=== PATIENT | female | born 1945 | race Caucasian/White ===

== ENCOUNTER → 2016-06-12 | Outpatient (CLI) | payer OTHER ==
[~2016-06-12] MED LIST: ASPI81TA28 PO; ATOR-22 PO; CALC1CAP24 PO; DORZ1SOL6 OP; FSM70 PO; HYDR-5688 PO; LEVO75TA5 PO; LISI-461 PO; MULT-506 PO; OMEP40CA PO; [UNRECOGNIZED DRUG - CODE] OPB
[2016-06-12 17:01] LABS: BASO % 0.4 %; BASO ABS # 0.02 K/uL (0-0.2); COMPLETE YES; EOS % 7.7 %; HEMATOCRIT 37.5 % (37-47); IG% 0.2 %; LYMPH % 28.9 %; LYMPH ABS # 1.61 K/uL (1.2-3.4); MEAN CELL VOLUME 89.1 fL (80-100); MEAN CORPUSCULAR HGB CONC 32.5 g/dl (32-36); MONO % 10.2 %; NEUT % 52.6 %; PLATELET COUNT 189 K/uL (130-400); RED BLOOD COUNT 4.21 M/uL (4.2-5.4); WHITE BLOOD COUNT 5.57 K/uL (4.8-10.8)
[2016-06-12 17:26] LABS: BLOOD UREA NITROGEN 20 mg/dl (7-18); BUN/CREATININE RATIO 27.6 (10-20); CALCIUM 9.4 mg/dl (8.5-10.1); CARBON DIOXIDE 31 mmol/L (21-32); CHLORIDE 110 mmol/L (98-107); CREATININE 0.74 mg/dl (0.60-1.20); GLUCOSE 115 mg/dl (70-99); SODIUM 146 mmol/L (136-145)
== END | disposition home or self-care (01) ==
LOC: C.LABBC 15:15
PROVIDERS: ATTEND Orthopaedic Surgery
DX: M25.562 Pain in left knee (principal)

== ENCOUNTER 2016-06-15 05:06 | Day surgery (SDC) | payer OTHER ==
[2016-06-13 11:25] VITALS: BMI 35.0
--- NOTE | 2016-06-13 15:24 | HISTORY & PHYSICAL EXAMINATION ---
DATE OF ADMISSION: 06/15/2016 CHIEF COMPLAINT: Postoperative adhesive capsulitis of the left knee. HISTORY OF PRESENT ILLNESS: Miya is a pleasant 71-year-old female who underwent a left total knee arthroplasty about 9 weeks ago. Postoperatively, she has done fairly well. Her motion has gotten to about 90 degrees, but she can not get beyond that. She also has pain in range of motion. She has been a little bit of frustrated by it and has elected to undergo a manipulation under anesthesia. She understands the risks, benefits and alternatives to the procedure and has elected to proceed. PAST MEDICAL HISTORY: Significant for hypothyroidism, hyperlipidemia. PAST SURGICAL HISTORY: Significant for rotator cuff repair, prolapsed bladder, carpal tunnel release and left knee arthroscopy with chondroplasty. ALLERGIES: None. MEDICATIONS: Include pilocarpine 4 times a day for glaucoma, Cosopt twice a day for glaucoma, Zioptan daily for glaucoma, alendronate weekly, Lipitor daily, Prilosec 40 mg daily, lisinopril 10 mg daily, Synthroid daily. FAMILY HISTORY: Noncontributory. SOCIAL HISTORY: She is , rarely drinks. Denies any tobacco or IV drug use. She remains active. REVIEW OF SYSTEMS: She complains of left knee pain and tightness, all other pertinent review of systems are negative. PHYSICAL EXAMINATION: GENERAL: She is awake, alert and oriented x3. She is in no apparent distress. She is very pleasant. HEAD, EYES, EARS, NOSE, AND THROAT: Pupils equal, round and reactive to light. Extraocular motion intact. Oral mucosa is pink and moist. HEART: Regular rate per radial pulse. LUNGS: Yvette symmetrically bilaterally with no audible breath sounds. ABDOMEN: Soft, nontender, nondistended. MUSCULOSKELETAL: On physical examination of the left knee, there are no signs of infection. The incision is well healed. She has motion from 0-90 degrees. She cannot seem to get beyond 90 degrees and she has pain end range of motion. IMPRESSION: Postoperative arthrofibrosis of the left knee. PLAN: Will proceed with a manipulation under anesthesia. Postoperatively, she will be discharged to home and she has therapy set up immediately to continue the range of motion.
[~2016-06-15] VITALS: Ht 144.8 cm; Wt 74.3 kg
[~2016-06-15 05:06] MED LIST changes: -ASPI81TA28 PO; -HYDR-5688 PO
[2016-06-15 05:36] VITALS: BP 177/88; PULSE 76; TEMP 36.8; O2SAT 98; Ht 144.8 cm; Wt 74.3 kg
[2016-06-15] MEDS ORDERED: ASPI81TA28 PO (05:52)
[2016-06-15] MEDS ORDERED: LACTATED RINGER'S 1000ML 1,000 ML IV SCH ×2 (06:00)
[2016-06-15] MEDS ORDERED: BUPIVACAINE 0.25% 30 ML VIAL ONE (06:20)
[2016-06-15] MEDS ORDERED: MIDAZOLAM HCL 1 MG/ML 2ML VIAL ONE (06:25)
[2016-06-15] MEDS ORDERED: PROPOFOL IV EMULSION 10 MG/ML 20 ML VIAL IV ONE (06:25)
[2016-06-15] MEDS ORDERED: FENTANYL CITRATE INJ 50 MCG/1 ML 2 ML VIAL ONE (06:25)
--- NOTE | 2016-06-15 06:42 | History & Physical Bridge Note ---
H&P Re-Evaluation Bridge Note: I have examined the patient, reviewed the History & Physical and in the interval since the performance of the History & Physical I have noted the following changes of clinical significance: No changes noted
[2016-06-15] MEDS ORDERED: METHYLPREDNISOLONE ACETATE 80 MG/ML VIAL ONE (06:46)
[2016-06-15] MEDS ORDERED: BUPIVACAINE 0.5 % 5 MG/1 ML MPF 30ML VIAL ONE (06:47)
[2016-06-15] MEDS ORDERED: BUPIVACAINE/EPINEPHRINE 0.5% MPF 1:200,000 30 ML VIAL ONE (06:47)
[2016-06-15] MEDS ORDERED: SODIUM CHLORIDE 0.9% PF 50 ML VIAL ONE (06:49)
--- NOTE | 2016-06-15 07:21 | Discharge Instructions ---
Discharge Instructions Admission Reason for Admission: Left Knee Osteoarthritis, Arthralgia Of Lower Leg Discharge Discharge Diagnosis / Problem: SAME ABOVE Discharge Goals Goal(s): Decrease discomfort, Improve function Activity Recommendations Activity Limitations: as noted below Lifting Limitations: gradually increase as tolerated Exercise/Sports Limitations: gradually increase as tolerated Driving or Machine Use: WHEN TOLERATED . Current Hospital Diet Patient's current hospital diet: Discharge Diet Recommended Diet: Regular Diet Fluid Restriction: None Procedures Procedures Performed: Left Knee Manipulation Under Anesthesia Pending Studies Studies pending at discharge: no Work Instructions Return To Work: after follow-up Additional Instructions: INCREASE ACTIVITIES TOLERATED WEIGHT BEARING TOLERATED Medical Emergencies . Who to Call and When: Medical Emergencies: If at any time you feel your situation is an emergency, please call 911 immediately. . Non-Emergent Contact Non-Emergency issues call your: Primary Care Provider Call Non-Emergent contact if: you have a fever, temperature is above 101.5 . "Provider Documentation" section prepared by Sukhdev Rajput. VTE Core Measure Inpt VTE Proph given/why not?: Treatment not indicated
[2016-06-15] MEDS ORDERED: SODIUM CHLORIDE 0.9% 1000ML 1,000 ML IV SCH (07:22)
--- NOTE | 2016-06-15 07:26 | [facility] Post Operative Brief Note ---
Immediate Operative Summary Operative Date Jun 15, 2016. Pre-Operative Diagnosis Postoperative arthrofibrosis of the left knee Post-Operative Diagnosis Postoperative arthrofibrosis of the left knee Procedure(s) Performed Left Knee Manipulation Under Anesthesia Surgeon Dr. Schwarz [employer] Sales[employer] Surgeon(s) Iglesia Rajput PAC Estimated Blood Loss 0cc Findings as above Specimens none Complication(s) None Disposition Recovery Room / PACU
[2016-06-15] MEDS ORDERED: HYDROCODONE/ACETAMOPHEN 5/325MG TAB PO PRN (07:30)
[2016-06-15] MEDS ORDERED: ONDANSETRON INJ 2 MG/ML 2 ML VIAL IV PRN ×2 (07:30→08:00)
--- NOTE | 2016-06-15 07:41 | OPERATIVE REPORT ---
DATE OF OPERATION: 06/15/2016 PREOPERATIVE DIAGNOSIS: Arthrofibrosis of the left knee. POSTOPERATIVE DIAGNOSIS: Same. PROCEDURE: Manipulation under anesthesia, left knee. SURGEON: Dr. Alex Schwarz. PAVING INSPECTOR: Iglesia Rajput PA-C, whose assistance was necessary for helping position the leg and assistance with manipulation. ANESTHESIA: General. COMPLICATIONS: None. CONDITION: Stable to PACU. INDICATIONS: Miya is a pleasant 71-year-old female who underwent a left total knee arthroplasty about 10 weeks ago. Postoperatively, she has done fairly well but her flexion stopped at 90 degrees. She cannot seem to get beyond that. It is sore in range of motion. She elected to undergo a manipulation under anesthesia. OPERATION AND FINDINGS: On 06/15/2016 she arrived at [facility] for the above procedure. She was seen in the preoperative holding area and the operative extremity was identified and signed. She was then taken back to the operating room, laid on the table in supine position and given general anesthesia. A time-out was done and the patient and operative extremity was properly identified. On preoperative examination she had range of motion from 5 to 90 degrees. Gentle manipulation was then done under anesthesia and I was rather easily able to get it to 125 degrees of flexion. The extension was a little bit more difficult. I could not quite get her out to full extension. 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 After the manipulation an injection of 0.5% Marcaine with epinephrine was done on the knee. A Band-Aid was placed. She was then extubated, transferred to a [facility] and taken to the postanesthesia care unit in stable condition. She tolerated the procedure well. I attest to the content of the Intraoperative Record and any orders documented therein. Any exceptio ns are noted below.
--- NOTE | 2016-06-15 07:57 | Anesthesiology Progress Note ---
Anesthesia Post Op Note Date & Time Jun 15, 2016 at 07:57 Vital Signs Pain Intensity: 0 Vital Signs Past 12 Hours Date Time Temp Pulse Resp B/P Pulse Ox O2 Delivery O2 Flow Rate FiO2 06/15/16 07:45 37.2 63 14 150/88 95 Room Air 06/15/16 07:35 67 16 137/72 95 Room Air 06/15/16 07:25 65 14 130/83 99 Mask 5 06/15/16 07:16 36.6 64 16 138/83 99 Mask 5 06/15/16 05:36 36.8 76 18 177/88 98 Room Air Notes Mental Status: alert / awake / arousable, participated in evaluation Pt Amnestic to Procedure: Yes Nausea / Vomiting: adequately controlled Pain: adequately controlled Airway Patency, RR, SpO2: stable & adequate BP & HR: stable & adequate Hydration State: stable & adequate Anesthetic Complications: no major complications apparent
[2016-06-15 07:58] VITALS: BP 134/69; PULSE 68; TEMP 36.8; O2SAT 95
[2016-06-15] MEDS ORDERED: FENTANYL CITRATE INJ 50 MCG/1 ML 2 ML VIAL IV PRN (08:00)
[2016-06-15] MEDS ORDERED: LABETALOL HCL IV 5 MG/ML 20ML IV PRN (08:00)
[2016-06-15] MEDS ORDERED: EpHEDrine SULFATE INJ 50 MG/ML AMP IV PRN ×2 (08:00)
[2016-06-15] MEDS ORDERED: ATROPINE SULFATE 0.1 MG/ML 5ML SYR IV PRN ×2 (08:00)
[2016-06-15] MEDS ORDERED: HYDROmorphone INJ 1 MG/ML SYR IV PRN (08:00)
[2016-06-15] MEDS ORDERED: MEPERIDINE HCL 25 MG/ML CARP IV PRN (08:00)
[2016-06-15 08:25] VITALS: PULSE 65; TEMP 36.8; O2SAT 95
== END 2016-06-15 08:30 | disposition home or self-care (01) ==
LOC: C.ACU 05:06
PROVIDERS: ATTEND Orthopaedic Surgery
DX: M24.662 Ankylosis, left knee (principal); E78.5 Hyperlipidemia, unspecified; E03.9 Hypothyroidism, unspecified; Z98.890 Other specified postprocedural states